=== PATIENT | female | born 1990 | race Caucasian/White ===

== ENCOUNTER → 2016-10-25 | Outpatient (CLI) | payer BC ==
[~2016-10-25] MED LIST: ANT PO; PRENTAB26 PO
[2016-10-25 10:57] LABS: BASO % 0.2 %; BASO ABS # 0.01 K/uL (0-0.2); COMPLETE YES; EOS % 3.1 %; HEMATOCRIT 37.9 % (37-47); IG% 0.2 %; LYMPH % 22.8 %; LYMPH ABS # 1.24 K/uL (1.2-3.4); MEAN CELL VOLUME 89.6 fL (80-100); MEAN CORPUSCULAR HEMOGLOBIN 30.5 pg (25-34); MEAN PLATELET VOLUME 10.1 fL (7.4-10.4); MONO % 6.1 %; NEUT % 67.6 %; PLATELET COUNT 279 K/uL (130-400); RED BLOOD COUNT 4.23 M/uL (4.2-5.4); WHITE BLOOD COUNT 5.44 K/uL (4.8-10.8)
== END | disposition home or self-care (01) ==
LOC: C.LABBC 07:32
PROVIDERS: ATTEND Family Medicine
DX: R10.13 Epigastric pain (principal); R53.82 Chronic fatigue, unspecified

== ENCOUNTER → 2017-08-03 | Outpatient (CLI) | payer BC | END | disposition home or self-care (01) | LOC: C.PAPS 16:22 | PROVIDERS: ATTEND Obstetrics & Gynecology | DX: Z01.419 Encounter for gynecological examination (general) (routine) without abnormal findings (principal); G43.909 Migraine, unspecified, not intractable, without status migrainosus ==

== ENCOUNTER 2019-02-21 00:35 | Inpatient (IN) ==
[2019-02-21] MEDS ORDERED: OXYTOCIN 30 UNITS/500 ML BAG IV PRN ×2 (01:16→07:42)
[2019-02-21] MEDS: LACTATED RINGER'S 1,000 ML IV PRN ×2 (01:30→03:36)
[2019-02-21 01:33] LABS: Hematocrit (blood only) 36.5 % (37-47); Hemoglobin 12.9 g/dL (12.0-16.0); Mean Corpuscular Hemoglobin 32.3 pg (25-34); Mean Corpuscular Volume 91.5 fL (80-100); Mean Platelet Volume 10.3 fL (7.4-10.4); Platelet Count 219 K/uL (130-400); RDW Coefficient of Variation 13.8 % (11.5-14.5); RDW Standard Deviation 46.5 fL (36.4-46.3); Red Blood Count 3.99 M/uL (4.2-5.4); White Blood Count 9.84 K/uL (4.8-10.8)
[2019-02-21] MEDS ORDERED: ePHEDrine sulfate 50 MG/ML AMP ONE (01:33)
[2019-02-21] MEDS ORDERED: BUPIVACAINE 0.25% 30 ML VIAL ONE (01:33)
[2019-02-21] MEDS ORDERED: fentaNYL 2MCG/ML ROPIV 1.25MG/ML 100 ML BAG EPI ONE (01:34)
[2019-02-21] MEDS ORDERED: fentaNYL citrate 100 MCG/2 ML VIAL ONE (01:34)
[2019-02-21 01:37] LABS: Mean Corpuscular Hgb Conc 35.3 g/dL (32-36)
[2019-02-21] MEDS ORDERED: NALOXONE HCL 0.4 MG/1 ML VIAL/CARP IV PRN (01:47)
[2019-02-21] MEDS ORDERED: fentaNYL 2MCG/ML ROPIV 1.25MG/ML 100 ML BAG EPI PRN (01:47)
[2019-02-21] MEDS ORDERED: NALBUPHINE HCL INJ 10 MG/ML AMP IV PRN (01:47)
[2019-02-21] MEDS ORDERED: NALOXONE HCL 1 MG in SODIUM CHLORIDE 0.9% 1000ML 1,000 ML IV PRN (01:47)
[2019-02-21] MEDS ORDERED: ONDANSETRON INJ 2 MG/ML 2 ML VIAL IV PRN (01:47)
[2019-02-21] MEDS ORDERED: DiphenhydrAMINE HCL 50 MG/ML VIAL IV PRN (01:47)
[2019-02-21] MEDS ORDERED: ePHEDrine sulfate 50 MG/ML AMP IV PRN (01:47)
--- NOTE | 2019-02-21 01:50 | Anesthesiology Consultation ---
Date of Service February 21, 2019 Assessment & Plan Chart Review Chart Review: Patient NOT seen in Pre Admission Testing and Acceptable Risk for Labor Epidural Consults Requested none ASA ASA2 Proposed Anesthesia Anesthesia Type: Labor Epidural and CSE Risk / Benefits Reviewed With: PT / POA / Parent / Guardian, Accepts Plan and Informed Consent Obtained History Height/Weight Height: 5 ft 3 in Weight: 92.079 kg Allergies Allergy/AdvReac Type Severity Reaction Status Date / Time Penicillins Allergy Mild RASH Verified 02/20/19 14:34 Dust Allergy Unknown DUST AND Uncoded 12/07/12 07:53 SEASONAL ALLERGIES Medications Home Medications Medication Instructions Recorded Confirmed Last Taken prenat.vits,rosi,[id number] PO 01/30/19 02/20/19 Unknown Active Medications Generic Name Dose Route Start Last Admin Trade Name Freq PRN Reason Stop Dose Admin Lactated Ringer's 1,000 mls @ 125 mls/hr 02/21/19 01:16 02/21/19 01:30 Lr IV 02/23/19 01:15 999 mls/hr .Q8H PRN Administration L&D Protocol Protocol NPO Date Last Intake of Fluids: 02/21/19 Time Last Intake of Fluids: 01:30 Date Last Intake of Solids: 02/20/19 Time Last Intake of Solids: 18:30 Past Medical History Medical History Acid reflux Acne Iron deficiency anemia Migraine headache Anxiety (Resolved) Breast cyst (Resolved) Labial lesion (Resolved) Nausea (Resolved) Weight loss (Resolved) History of varicella Exercise / Class Metabolic Activity II 4-5 Yardwork/Stairs/Walk up hill Past Family History Family History Mother Anemia Other Colorectal cancer Diabetes Dyslipidemia Endometriosis Hypertension Ovarian cancer Past Surgical History Surgical History H/O endoscopy History of rectal surgery S/P wisdom tooth extraction Past Anesthesia History No Hx of Anesthesia Complications and No Family Hx of Anesthesia Complications History of PONV No Hx of PONV and No Hx of Motion Sickness Social History Smoking Status: Never smoker Do You Dip or Chew Tobacco: No Hx Alcohol Use: No Hx Substance Use: No substance use type: does not use Review of Systems no chest pain or sob Physical Exam Vital Signs Last Vital Signs Temp 36.9 C 02/21/19 01:12 Pulse 83 02/21/19 01:48 Resp 18 02/21/19 01:12 BP 135/76 02/21/19 00:56 Pulse Ox 98 02/21/19 01:48 ENMT Mouth: no TMJ abnormality Thyromental Distance: > or= 3.5 Finger Breadths Mallampati Class: II Neck normal visual inspection Respiratory normal respiratory effort Auscultation: lungs clear to auscultation bilaterally Cardiovascular Rate/Rhythm: regular rate and regular rhythm Musculoskeletal Spine: normal cervical ROM Neurologic moves all extremities Psychiatric Orientation: alert and oriented x 3 Testing Laboratory Results 02/21/19 01:22
[2019-02-21] MEDS ORDERED: OXYCODONE/ACETAMINOPHEN 5mg/325mg TAB PO PRN (07:42)
[2019-02-21] MEDS ORDERED: DIPHTHERIA/TETANUS/PERTUSSIS 0.5 ML SYR/VIAL IM ONE (07:42)
[2019-02-21] MEDS ORDERED: HYDROCORTISONE ACETATE 25 MG SUPP PR PRN (07:42)
[2019-02-21] MEDS ORDERED: ACETAMINOPHEN 325 MG TAB PO PRN (07:42)
[2019-02-21] MEDS ORDERED: SUPERCREAM 0.870% 15 GM JAR EXT PRN (07:42)
[2019-02-21] MEDS ORDERED: BENZOCAINE 20% AER SPR 82.5 GM CAN EXT PRN (07:42)
--- NOTE | 2019-02-21 08:36 | Anesthesia Procedure Note ---
Date of Service February 21, 2019 Anesthesia Post Epidural Note Vital Signs Vital Signs: Temp Pulse Resp BP Pulse Ox 37.6 C H 89 18 126/67 100 02/21/19 07:05 02/21/19 08:32 02/21/19 08:17 02/21/19 08:32 02/21/19 07:13 Pain Intensity Bilateral Abdomen: Pain Intensity: 7 Notes Mental Status: alert / awake / arousable and participated in evaluation Patient Amnestic to Procedure: No Nausea / Vomiting: adequately controlled Pain: adequately controlled Airway Patency, RR, SpO2: stable & adequate BP & HR: stable & adequate Hydration State: stable & adequate Neuraxial Anesthesia: was administered and sensory block is resolving Anesthetic Complications: no major complications apparent and Pt Satisfied with anesthetic care Epidural: Removed without complications and With tip intact
[2019-02-21] MEDS: DOCUSATE SODIUM 100 MG CAP PO SCH ×2 (08:57→21:15)
--- NOTE | 2019-02-21 09:16 | Delivery Summary ---
DATE OF OPERATION: 02/21/2019 The patient is a 28-year-old 2, para 1-0-0-1 white female, EDC of 02/25/2019 who presented in active labor. She received effective epidural analgesia. Membranes ruptured spontaneously for clear fluid when she was complete. She began pushing effectively over intact perineum for delivery of a viable male . Rest of the delivered easily and was placed on the mother's abdomen for further attention and drying. The was vigorous and moving all 4 limbs. The cord was clamped and cut after approximately 20 seconds the cord was short. After cord blood was obtained, the placenta was expressed intact with a 3-vessel cord. A first-degree laceration was repaired with 3-0 chromic in the usual fashion. Estimated blood loss was 200 mL. Mother and were doing well after delivery. bleeding was controlled with dilute Pitocin. I attest to the content of the Intraoperative Record and any orders documented therein. Any exceptions are noted below. MTDD
[2019-02-21] MEDS: PRENATAL VITAMIN 1 TAB PO SCH (09:58)
[2019-02-21] MEDS: IBUPROFEN 600 MG TAB PO PRN (21:20)
[2019-02-22] MEDS: IBUPROFEN 600 MG TAB PO PRN ×2 (01:50→06:28)
--- NOTE | 2019-02-22 06:50 | Obstetrical Progress Note ---
Date of Service <Paxton Lancaster DO - Last Filed: 02/22/19 06:50> February 22, 2019 Assessment & Plan <DO Monae New Last Filed: 02/22/19 06:50> (1) : -PPD#1 -Vitals reviewed, WNL (Tmax 37.6) - GBS -, Blood Type A+ - Clinically stable. - Feels well today. Eating well, voiding well, ambulating well. - Pain well controlled. - Routine post- care - Questions answered this morning. Day #:: 1 Subjective <DO Monae Nwe Last Filed: 02/22/19 06:50> Ambulation: ambulating normally Voiding: no voiding problems Passing Gas:: Yes Diet Tolerance:: regular diet Lochia:: Moderate Feeding Type:: breast feeding Current Pain Level(1-10): 0 Patient is a 28 PPD#1. Patient states that she is feeling well today and that her pain is well controlled. She has no other complaints at this time. Constitutional: no fever and no chills Respiratory: no cough, no dyspnea and no wheezing Cardiovascular: + edema; no chest pain, no dyspnea, no palpitations and no calf pain Breast: no breast pain Gastrointestinal: no abdominal pain, no nausea and no vomiting Genitourinary (female): no dysuria and no difficulty urinating Neurologic: no headache(s) Physical Exam <DO Monae New Last Filed: 02/22/19 06:50> Constitutional WD/WN, vitals as above Respiratory normal respiratory effort, lungs clear to auscultation Cardiovascular Rate/Rhythm: regular rate and regular rhythm Heart Sounds: normal S1 and normal S2; no click, no gallop, no murmur and no cardiac rub Extremities: + edema (+1); no calf tenderness Gastrointestinal (Abdomen) Inspection/Auscultation: abdomen normal to inspection and normal bowel sounds Percussion/Palpation: abdomen soft; abdomen nontender Genitourinary OB Exam Abdomen: + fundal height Fundus: + firm and + relation to umbilicus (2cm below); not tender and not boggy Results & Data <DO Monae New Last Filed: 02/22/19 06:50> Vital Signs (Past 12 Hours) Vital Signs Temp Pulse Resp BP Pulse Ox 02/22/19 03:20 36.7 C 72 18 122/77 02/21/19 23:30 36.5 C 71 18 109/71 02/21/19 19:30 36.9 C 84 20 116/75 98 Medications Administered Current Inpatient Medications Acetaminophen (Tylenol) 650 mg PO Q6H PRN PRN Reason: Pain/SHETH/Fever Stop: 03/23/19 07:41 Benzocaine (Dermoplast Pain Relieving [place]) 1 appln EXT PRN PRN PRN Reason: Perineal Discomfort Stop: 03/23/19 07:41 Bisacodyl (Dulcolax) 5 mg PO 1999 [facility] Stop: 02/22/19 20:01 Bisacodyl (Dulcolax) 10 mg [place] DAILY PRN PRN Reason: No BM on 2nd post- day Stop: 03/25/19 06:59 Cocaine HCl (Supercream 0.870%) 1 gm EXT BID PRN PRN Reason: Hemorrhoidal Inflammation Stop: 03/07/19 07:41 Docusate Sodium (Colace) 100 mg PO DAILY@08,21 [facility] Stop: 03/23/19 07:59 Last Admin: 02/21/19 21:15 Dose: 100 mg Documented by: Hydrocortisone (Anusol Hc) 25 mg [place] BID PRN PRN Reason: Hemorrhoidal Inflammation Stop: 03/23/19 07:41 Lactated Ringer's (Lr) 1,000 mls @ 125 mls/hr IV .Q8H PRN; Protocol PRN Reason: L&D Protocol Stop: 02/23/19 01:15 Last Infusion: 02/21/19 07:18 Dose: 537.5 mls/hr Documented by: Oxytocin (Pitocin) 30 units in 500 mls @ 333.333 mls/hr IV .Q1H30M PRN; Protocol PRN Reason: Bleeding Control Stop: 03/23/19 01:15 Last Titration: 02/21/19 12:12 Dose: Infused Documented by: Oxytocin (Pitocin) 30 units in 500 mls @ 333.333 mls/hr IV .Q1H30M PRN; Protocol PRN Reason: Bleeding Control Stop: 03/23/19 07:41 Last Titration: 02/21/19 12:13 Dose: Infused Documented by: Ibuprofen (Motrin) 600 mg PO Q4H PRN PRN Reason: Pain/SHETH/Cramping/Fever Stop: 03/23/19 07:41 Last Admin: 02/22/19 06:28 Dose: 600 mg Documented by: Oxycodone/Acetaminophen (Percocet 5mg/325mg) 1 tab PO Q4H PRN PRN Reason: Pain not relieved by... Stop: 03/07/19 07:41 Prenat Multivit/Cayce/Iron/Folic Ac ( Vitamin) 1 tab PO DAILY@08 GINGER Stop: 03/23/19 07:59 Last Admin: 02/21/19 09:58 Dose: 1 tab Documented by: <Monty Kyle Jr, MD, FACOG - Last Filed: 02/22/19 07:39> Co-Signing Physician Notes Resident Physician Supervision Note: I was present with Dr. Flood during the history and exam. I discussed the case with the resident and agree with the findings and plan as documented in the note. Any exceptions or clarifications are listed here: Patient desires discharge, instructions given, f/u in 6 weeks Documented By: Monty Kyle Jr, MD, FACOG Resident Activity Tracking <Paxton Lancaster DO - Last Filed: 02/22/19 06:50> Resident Involvement: Resident Care Provided Care Provided: OB Delivery
[2019-02-22 07:11] LABS: Hematocrit (blood only) 34.1 % (37-47); Hemoglobin 11.5 g/dL (12.0-16.0); Mean Corpuscular Hemoglobin 31.3 pg (25-34); Mean Corpuscular Hgb Conc 33.7 g/dL (32-36); Mean Corpuscular Volume 92.7 fL (80-100); Mean Platelet Volume 10.1 fL (7.4-10.4); Platelet Count 167 K/uL (130-400); RDW Coefficient of Variation 14.2 % (11.5-14.5); RDW Standard Deviation 48.1 fL (36.4-46.3); Red Blood Count 3.68 M/uL (4.2-5.4); White Blood Count 13.17 K/uL (4.8-10.8)
[2019-02-22] MEDS: PRENATAL VITAMIN 1 TAB PO SCH (08:54)
[2019-02-22] MEDS: DOCUSATE SODIUM 100 MG CAP PO SCH (08:54)
[2019-02-22] MEDS ORDERED: BISACODYL 5 MG TABEC PO SCH (20:00)
[2019-02-23] MEDS ORDERED: BISACODYL 10 MG SUPP PR PRN (07:00)
== END 2019-02-22 17:45 | disposition home or self-care (01) | DRG 807 ==
LOC: OPB 00:35 → 4S1 00:36 → 4N 10:20

== ENCOUNTER 2022-10-12 08:46 | Observation (INO) ==
[2022-10-12] MEDS ORDERED: SODIUM CHLORIDE 0.9% 1000ML 1,000 ML IV STA (08:57)
[2022-10-12] MEDS ORDERED: CEFEPIME 2,000 MG/20 ML VIAL IV STA (08:57)
[2022-10-12] MEDS ORDERED: ONDANSETRON INJ 2 MG/ML 2 ML VIAL IV STA (08:57)
[2022-10-12] MEDS ORDERED: KETOROLAC TROMETHAMINE 15 MG/ML VIAL IV STA (09:04)
[2022-10-12] MEDS ORDERED: MoRPHine SULFATE 2 MG/ML CARP IV PRN ×2 (09:04→16:30)
[2022-10-12] MEDS ORDERED: MoRPHine SULFATE 2 MG/ML CARP IV STA (09:04)
--- NOTE | 2022-10-12 09:08 | Emergency Department Note ---
Impression & Plan RUQ abdominal pain, Acute cholecystitis, Elevated liver enzymes ED Provider Note NAME: TAZ GÓMEZ AGE: 32 SEX: F : 1990 ARRIVES VIA: Walk-In INFORMANT: [Patient] ED PROVIDER(S): [Tomasz Jensen MD] CHIEF COMPLAINT: Abdominal pain HISTORY OF PRESENT ILLNESS: The patient is a 32-year-old female with a history of gallstones. She was here last evening for a bout of abdominal pain and then called back this morning as the radiology overread suggested early acute cholecystitis. The patient states that she began having pain yesterday around noon, 20 hours ago. The pain began after lunch. The pain has been persistent. She has had nausea without vomiting. No fever, no cough or congestion or shortness of breath. No diarrhea or urinary complaints. The patient states that she was seen yesterday and when she left, she began having increased discomfort. She called the ER and they told her that the over read showed potential infection of the gallbladder and she was referred back to the hospital for admission. PMHx/PSHx: See Below SOCIAL HISTORY: See Below. PHYSICAL EXAM: GENERAL: Patient is in no acute distress. HEENT: No acute trauma, normocephalic atraumatic, mucous membranes moist, no nasal congestion. NECK: No stridor, no adenopathy, no meningismus, trachea is midline. LUNGS: Clear to auscultation bilaterally, no wheeze, no rhonchi, breath sounds equal. HEART: Without murmurs gallops or rubs, regular rate and rhythm. ABDOMEN: Soft, moderately tender in the right upper quadrant, no true peritonitis. EXTREMITIES: No cyanosis or edema, full range of motion of all the joints without pain or difficulty, no signs for acute trauma. NEUROLOGIC: Oriented x 3, no acute motor or sensory deficits, no focal weakness. SKIN: No rash, no jaundice, no diaphoresis. DIFFERENTIAL DIAGNOSIS: Acute cholecystitis, biliary colic, pancreatitis, ulcer, gastritis, electrolyte imbalance, UTI, among others. EMERGENCY DEPARTMENT COURSE/PROCEDURES: Prior/Outside records reviewed: Recent ED visit. Radiology readings. MEDICAL DECISION MAKING: There is no leukocytosis or concerning anemia. There is a normal platelet count. No renal failure or significant electrolyte abnormality. AST and ALT are both elevated, this is a new finding compared to her laboratory values earlier. The bilirubin and alk phos were normal. There was no pancreatitis. COVID test returned negative. On exam, the patient was tender in the right upper quadrant. She was not toxic or febrile. Ultrasound from overnight was concerning on over-read for acute cholecystitis. The patient received IV saline, IV Toradol and IV morphine. She was given IV Zofran. She received IV cefepime as empiric antibiotic coverage. I spoke with the patient about her findings, I spoke with case management, I did contact general surgery, Dr. Beltran. The patient was seen in the ED by Dr. Beltran, she is being readied for the operating room. She is going to require a cholecystectomy. DISPOSITION: Patient's presentation and findings warrant a hospital stay and surgical intervention. Past Med/Surg History Medical History Acid reflux Acne Anxiety Breast cyst History of varicella Iron deficiency anemia Labial lesion Migraine headache Nausea Ureterocele of fetus in [place] Weight loss Surgical History H/O endoscopy History of rectal surgery polypectomy S/P wisdom tooth extraction 2013 Family History Mother Anemia Dyslipidemia Endometriosis Grandmother No problems noted. Father Dyslipidemia Diabetes Depression Family/Other Ovarian cancer maternal great grandmother Colorectal cancer maternal relatives Endometriosis Grandmother (Maternal) Hypertension Uncle Hypertension maternal Grandmother (Paternal) Diabetes Grandfather (Maternal) Diabetes Grandfather (Maternal) Diabetes Aunt Bleeding disorder maternal Denies family history of Breast cancer Social History Smoking Status: Never smoker Second Hand Exposure: No; Do You Dip or Chew Tobacco: No; Hx Alcohol Use: No Hx Substance Use: No Preferred Language: Faroese Communication Ability: Effective Bond Writer Required: No Beliefs That Will Affect Care: None marital status: Current Living Situation: Spouse Other Information That Helps Us Care for You: No Feels Safe at Home: Yes Safety Concerns: Feels Safe At This Time Assistive Devices: Glasses Allergies Allergies Allergy/AdvReac Type Severity Reaction Status Date / Time Penicillins Allergy Intermediate RASH Verified 10/11/22 23:59 Home Meds Home Medications Medication Instructions Recorded Confirmed biotin 10 mg tablet 10 mg PO DAILY 10/11/22 10/12/22 multivitamin 2 tab PO DAILY 10/11/22 10/12/22 vit no.95-ferrous 1 tab PO DAILY 10/11/22 10/12/22 fumarate 28 mg-folic acid 800 mcg tablet () Results & Data (ED) Vital Signs Vital Signs - 24 hr 10/12/22 08:47 10/12/22 10:00 10/12/22 12:12 Temperature 36.6 C Temperature Source Temporal Artery Scan Pulse Rate 77 Pulse Rate [Apical] Pulse Rate [Left Finger] 69 63 Pulse Rhythm [Apical] Pulse Rhythm [Left Finger] Regular Pulse Strength [Left Finger] Normal Respiratory Rate 16 20 18 Respiratory Effort / Characteristics Non-Labored Spontaneous Respiratory Depth Normal Respiratory Pattern Regular Blood Pressure 125/78 Blood Pressure [Left Arm] Blood Pressure [Right Arm] 97/70 L 97/50 L Blood Pressure Mean 93 Blood Pressure Mean [Left Arm] Blood Pressure Mean [Right Arm] 79 65 Blood Pressure Position [Left Arm] Blood Pressure Position [Right Arm] Sitting Pulse Oximetry 99 100 99 Oxygen Delivery Method Room Air Room Air Oxygen Flow Rate Sepsis Recent Fever Within 48 Hours No Sepsis New/Unexplained Change in Mental Status N/A Sepsis Action Taken by Nursing No Action Required 10/12/22 12:53 10/12/22 14:27 Temperature 36.9 C 36.8 C Temperature Source Oral Temporal Artery Scan Pulse Rate Pulse Rate [Apical] 67 Pulse Rate [Left Finger] 67 Pulse Rhythm [Apical] Regular Pulse Rhythm [Left Finger] Regular Pulse Strength [Left Finger] Normal Respiratory Rate 18 18 Respiratory Effort / Characteristics Non-Labored Spontaneous Non-Labored Spontaneous Respiratory Depth Normal Normal Respiratory Pattern Regular Regular Blood Pressure Blood Pressure [Left Arm] 101/50 L Blood Pressure [Right Arm] 115/65 Blood Pressure Mean Blood Pressure Mean [Left Arm] 67 Blood Pressure Mean [Right Arm] 81 Blood Pressure Position [Left Arm] Semi-fowlers Blood Pressure Position [Right Arm] Sitting Pulse Oximetry 98 100 Oxygen Delivery Method Room Air Oxymask Oxygen Flow Rate 6 Sepsis Recent Fever Within 48 Hours Sepsis New/Unexplained Change in Mental Status Sepsis Action Taken by Residential Medications Current Medication List: was personally reviewed by me Laboratory Data Attestation: I reviewed the patient's lab results. 10/12/22 09:15 10/12/22 09:15 Lab Results 10/12/22 10/12/22 10/12/22 Range/Units 09:15 09:15 09:30 WBC 8.22 (4.8-10.8) K/ul RBC 4.25 (4.20-5.40) M/uL Hgb 12.8 (12.0-16.0) g/dl Hct 36.6 L (37.0-47.0) % MCV 86.1 (80.0-100.0) fL MCH 30.1 (25.0-34.0) pg MCHC 35.0 (32.0-36.0) g/dL RDW Std Deviation 39.4 (36.4-46.3) fL RDW Coeff of Sadiq 12.6 (11.5-14.5) % Plt Count 240 (130-400) K/uL MPV 10.1 (9.4-12.4) fL Immature Gran % (Auto) 0.2 % Neut % (Auto) 85.5 % Lymph % (Auto) 9.1 % [place] % (Auto) 4.7 % Eos % (Auto) 0.1 % Baso % (Auto) 0.4 % Neut # (Auto) 7.02 H (1.40-6.50) K/uL Lymph # (Auto) 0.75 L (1.2-3.4) K/uL [place] # (Auto) 0.39 (0.11-0.59) K/uL Eos # (Auto) 0.01 (0-0.50) K/uL Baso # (Auto) 0.03 (0-0.2) K/uL Immature Gran # (Auto) 0.02 (0.01-0.20) K/uL Sodium 139 (136-145) mmol/L Potassium 3.9 (3.5-5.1) mmol/L Chloride 109 H (98-107) mmol/L Carbon Dioxide 23 (21-32) mmol/L Anion Gap 7 (3-11) BUN 9 (6-23) mg/dl Creatinine 0.65 (0.6-1.2) mg/dl Est Cr Clr Drug Dosing 123.2 ml/min Est GFR ( Amer) 135.2 ml/min Est GFR (Non-Af Amer) 116.7 ml/min BUN/Creatinine Ratio 13.8 (10-20) Glucose 107 H (70-99(Fasting)) mg/dl Calcium 9.1 (8.6-10.3) mg/dl Total Bilirubin 1.0 D (0.2-1.0) mg/dl AST 548 H (13-39) U/L ALT 412 H (7-52) U/L Alkaline Phosphatase 62 (34-104) U/L Total Protein 7.4 (6.0-8.3) gm/dl Albumin 4.6 (3.4-5.0) gm/dl Globulin 2.8 (2.5-4.0) gm/dl Albumin/Globulin Ratio 1.6 (0.9-2) Lipase 30 (11-82) U/L SARS-CoV-2, RNA, NAAT NEGATIVE (NEGATIVE) Administered Medications Discontinued Medications Bupivacaine HCl/Epinephrine Bitart (Bupivacaine/Epinephrine 0.25% 1:200,000 30 Ml Vial) Confirm Administered Dose 30 ml .ROUTE .[facility] Stop: 10/12/22 12:37 Last Admin: 10/12/22 14:11 Dose: 30 ml Documented By: GEN Sodium Chloride (Nss 1000ml) 1,000 mls @ 999 mls/hr IV .Q1H1M STA Stop: 10/12/22 09:57 Last Infusion: 10/12/22 16:20 Dose: 0 mls/hr Documented By: Admin: 10/12/22 09:29 Dose: 999 mls/hr Documented By: QAMAR Cefepime HCl (Maxipime) 2,000 mg in 20 mls @ 5 mls/min IV NOW STA; Protocol Stop: 10/12/22 09:00 Last Admin: 10/12/22 09:29 Dose: 5 mls/min Documented By: QAMAR Ketorolac Tromethamine (Ketorolac Tromethamine 15 Mg/Ml Vial) 15 mg IV NOW STA Stop: 10/12/22 09:05 Last Admin: 10/12/22 09:29 Dose: 15 mg Documented By: QAMAR Morphine Sulfate (Morphine Sulfate 2 Mg/Ml [place]) 2 mg IV NOW STA Stop: 10/12/22 09:05 Last Admin: 10/12/22 09:29 Dose: 2 mg Documented By: QAMAR Ondansetron HCl (Ondansetron Inj 2 Mg/Ml 2 Ml Vial) 4 mg IV NOW STA Stop: 10/12/22 08:58 Last Admin: 10/12/22 09:29 Dose: 4 mg Documented By: MNE Discharge Plan Visit Data Chief Complaint: Abdominal Pain Stated Complaint: INFECTION IN GALLBLATER ED Provider: Tomasz Jensen Discharge Problem: RUQ abdominal pain, Acute cholecystitis, Elevated liver enzymes Patient Disposition: Admitted As Inpatient Condition: Good Discharge Instructions Interventions: ED Discharge Assessment Last Done: 10/12/22 12:38
[2022-10-12 09:41] LABS: Basophils # (auto) 0.03 K/uL (0-0.2); Basophils % (auto) 0.4 %; Eosinophils # (auto) 0.01 K/uL (0-0.50); Eosinophils % (auto) 0.1 %; Hematocrit (blood only) 36.6 % (37.0-47.0); Hemoglobin 12.8 g/dl (12.0-16.0); Immature Granulocytes # (auto) 0.02 K/uL (0.01-0.20); Immature Granulocytes % (auto) 0.2 %; Lymphocytes # (auto) 0.75 K/uL (1.2-3.4); Lymphocytes % (auto) 9.1 %; Mean Corpuscular Hemoglobin 30.1 pg (25.0-34.0); Mean Corpuscular Volume 86.1 fL (80.0-100.0); Mean Platelet Volume 10.1 fL (9.4-12.4); Monocytes # (auto) 0.39 K/uL (0.11-0.59); Monocytes % (auto) 4.7 %; Neutrophils # (auto) 7.02 K/uL (1.40-6.50); Neutrophils % (auto) 85.5 %; Platelet Count 240 K/uL (130-400); RDW Coefficient of Variation 12.6 % (11.5-14.5); RDW Standard Deviation 39.4 fL (36.4-46.3); Red Blood Count 4.25 M/uL (4.20-5.40); White Blood Count 8.22 K/ul (4.8-10.8)
[2022-10-12 10:04] LABS: Albumin Globulin Ratio 1.6 (0.9-2); Albumin Level 4.6 gm/dl (3.4-5.0); BUN Creatinine Ratio 13.8 (10-20); Calcium 9.1 mg/dl (8.6-10.3); Creatinine Clr Calc Pharmacy 123.2 ml/min; Est GFR (African American) 135.2 ml/min; Est GFR (Non-African American) 116.7 ml/min; Globulin 2.8 gm/dl (2.5-4.0); Potassium 3.9 mmol/L (3.5-5.1); Total Protein 7.4 gm/dl (6.0-8.3)
--- NOTE | 2022-10-12 10:37 | History & Physical Report ---
Date of Service October 12, 2022 Assessment & Plan (1) Acute cholecystitis: Plan 32-year-old woman with acute cholecystitis. I discussed the risks and benefits of laparoscopic cholecystectomy with her and her . All her questions were answered, and they are agreeable to proceed. Consent has been obtained. We will take her to the operating room at the earliest convenience. History of Present Illness Primary Care Provider: Paxton Lancaster DO 32-year-old woman presents with a 1 day history of right upper quadrant pain with nausea. She has had prior episodes of right upper quadrant pain, and an ultrasound in the past demonstrated gallstones. The pain resolved however, and she was not seen by surgery at that time. Since the pain started yesterday, it has been worsening. It is sharp pain in her right upper quadrant and epigastric region. She denies fevers or chills. Ultrasound demonstrates acute cholecystitis. White blood cell count is normal. AST/ALT slightly elevated but total bilirubin and alk phosphatase are normal. Allergies Allergy/AdvReac Type Severity Reaction Status Date / Time Penicillins Allergy Intermediate RASH Verified 10/11/22 23:59 Home Medications Medication Instructions Recorded Confirmed Type biotin 10 mg tablet 10 mg PO DAILY 10/11/22 10/12/22 History multivitamin 2 tab PO DAILY 10/11/22 10/12/22 History vit no.95-ferrous 1 tab PO DAILY 10/11/22 10/12/22 History fumarate 28 mg-folic acid 800 mcg tablet () Past Med/Surg History Medical History Acid reflux Acne Anxiety Breast cyst History of varicella Iron deficiency anemia Labial lesion Migraine headache Nausea Ureterocele of fetus in [place] Weight loss Surgical History H/O endoscopy History of rectal surgery polypectomy S/P wisdom tooth extraction 2013 Family History Mother Anemia Dyslipidemia Endometriosis Grandmother No problems noted. 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 Required: No Beliefs That Will Affect Care: None marital status: Current Living Situation: Spouse and Family Feels Safe at Home: Yes Assistive Devices: None Review of Systems Review of Systems: All systems reviewed & are unremarkable except as noted in HPI & below Physical Exam Constitutional: WD/WN, vitals as above Eyes: PERRL, conjunctivae normal, anicteric sclerae Neck: trachea midline, no thyromegaly Respiratory: normal respiratory effort; no respiratory distress and no labored breathing Cardiovascular: Rate/Rhythm: regular rate and regular rhythm Gastrointestinal (Abdomen): Inspection/Auscultation: abdomen normal to inspection; abdomen not distended Percussion/Palpation: + abdomen tender (RUQ and epigastric region) and abdomen soft; no guarding and abdomen not rigid Skin: no rashes, warm and dry Psychiatric: A+Ox3, euthymic affect Results & Data Results & Data Vital Signs (Past 12 Hours) Vital Signs Temp Pulse Pulse Resp BP BP Pulse Ox 10/12/22 10:00 69 20 97/70 L 100 10/12/22 08:47 36.6 C 77 16 125/78 99 O2 Del Method 10/12/22 10:00 Room Air 10/12/22 08:47 Laboratory Results 10/12/22 10/12/22 10/12/22 Range/Units 09:30 09:15 09:15 WBC 8.22 (4.8-10.8) K/ul RBC 4.25 (4.20-5.40) M/uL Hgb 12.8 (12.0-16.0) g/dl Hct 36.6 L (37.0-47.0) % MCV 86.1 (80.0-100.0) fL MCH 30.1 (25.0-34.0) pg MCHC 35.0 (32.0-36.0) g/dL RDW Std Deviation 39.4 (36.4-46.3) fL RDW Coeff of Sadiq 12.6 (11.5-14.5) % Plt Count 240 (130-400) K/uL MPV 10.1 (9.4-12.4) fL Immature Gran % (Auto) 0.2 % Neut % (Auto) 85.5 % Lymph % (Auto) 9.1 % [place] % (Auto) 4.7 % Eos % (Auto) 0.1 % Baso % (Auto) 0.4 % Neut # (Auto) 7.02 H (1.40-6.50) K/uL Lymph # (Auto) 0.75 L (1.2-3.4) K/uL [place] # (Auto) 0.39 (0.11-0.59) K/uL Eos # (Auto) 0.01 (0-0.50) K/uL Baso # (Auto) 0.03 (0-0.2) K/uL Immature Gran # (Auto) 0.02 (0.01-0.20) K/uL Sodium 139 (136-145) mmol/L Potassium 3.9 (3.5-5.1) mmol/L Chloride 109 H (98-107) mmol/L Carbon Dioxide 23 (21-32) mmol/L Anion Gap 7 (3-11) BUN 9 (6-23) mg/dl Creatinine 0.65 (0.6-1.2) mg/dl Est Cr Clr Drug Dosing 123.2 ml/min Est GFR ( Amer) 135.2 ml/min Est GFR (Non-Af Amer) 116.7 ml/min BUN/Creatinine Ratio 13.8 (10-20) Glucose 107 H (70-99(Fasting)) mg/dl Calcium 9.1 (8.6-10.3) mg/dl Total Bilirubin 1.0 D (0.2-1.0) mg/dl AST 548 H (13-39) U/L ALT 412 H (7-52) U/L Alkaline Phosphatase 62 (34-104) U/L Total Protein 7.4 (6.0-8.3) gm/dl Albumin 4.6 (3.4-5.0) gm/dl Globulin 2.8 (2.5-4.0) gm/dl Albumin/Globulin Ratio 1.6 (0.9-2) Lipase 30 (11-82) U/L SARS-CoV-2, RNA, NAAT NEGATIVE (NEGATIVE) Diagnostic Findings ADDENDUM ADDENDUM: The examination is reviewed in concurrence with the abdominal rad iograph performed the same date. The gallbladder is significantly distended, with stones in the region of the gallbladder neck. The wall is mildly thickened and minimally edematous. Acute cholecystitis is not excluded. Surgical assessment is advised. If warranted, a nuclear hepatobiliary scan could be considered for further assessment. No intra or extrahepatic biliary ductal dilatation is seen. Findings were reviewed with Jose Godinez in the emergency Department at the time of addendum. Electronically signed by: Tomasz Bravo M.D. 10/12/2022 7:12 AM ADDENDUM END Exam(s): US GALLBLADDER EXAM: US Abdomen Limited, Gallbladder CLINICAL HISTORY: RUQ abd pain. TECHNIQUE: Real-time ultrasound of the right upper quadrant with image documentation. COMPARISON: Limited abdominal ultrasound 02/22/2022 FINDINGS: Liver: The liver is hyperechoic in appearance measuring 14.4 cm. Gallbladder: Gallstones are noted in the dependent posterior gallbladder. Shadowing gallstones are noted near the neck of the gallbladder, measuring up to 1 cm in diameter. The gallbladder is somewhat hydropic in appearance. The gallbladder wall measures 1.4 mm. No pericholecystic fluid. Evaluation for a sonographic Clayton sign is limited by patient medication status. Common bile duct: The common bile duct measures 3.9 mm. No stones. No dilation. Pancreas: The visualized pancreas is unremarkable. Right kidney: Right kidney demonstrates no hydronephrosis or nephrolithiasis. Inferior vena cava: The IVC is unremarkable. Free fluid: No free fluid. IMPRESSION: 1. Gallstones are noted in the dependent posterior gallbladder with shadowing stones noted near the neck of the gallbladder, measuring up to 1 cm in diameter. The gallbladder is somewhat hydropic in appearance. However, there is no gallbladder wall thickening or pericholecystic fluid to suggest associated cholecystitis. Evaluation for potential sonographic Clayton sign is limited by patient medication status. Please correlate clinically. 2. No biliary dilatation.
[2022-10-12] MEDS ORDERED: fentaNYL citrate PF 100 MCG/2 ML VIAL ONE ×2 (12:33→12:34)
[2022-10-12] MEDS ORDERED: MIDAZOLAM HCL 1 MG/ML 2ML VIAL ONE (12:33)
[2022-10-12] MEDS ORDERED: BUPIVACAINE/EPINEPHRINE 0.25% 1:200,000 30 ML VIAL ONE (12:36)
--- NOTE | 2022-10-12 12:38 | Anesthesiology Consultation ---
Date of Service October 12, 2022 Assessment & Plan (1) Encounter for pre-operative examination: Chart Review Chart Review: Acceptable Risk for Surgery History Surgery Operation Date: 10/12/22 12:30 Proposed Procedures p Laparoscopic Cholecystectomy - Rigoberto Beltran MD Height/Weight Height: 5 ft 5 in Weight: 73 kg Allergies Allergy/AdvReac Type Severity Reaction Status Date / Time Penicillins Allergy Intermediate RASH Verified 10/11/22 23:59 Medications Home Medications Medication Instructions Recorded Confirmed Last Taken biotin 10 mg tablet 10 mg PO DAILY 10/11/22 10/12/22 10/11/22 multivitamin 2 tab PO DAILY 10/11/22 10/12/22 10/11/22 vit no.95-ferrous 1 tab PO DAILY 10/11/22 10/12/22 10/11/22 fumarate 28 mg-folic acid 800 mcg tablet () Past Medical History Medical History Acid reflux Acne Anxiety Breast cyst History of varicella Iron deficiency anemia Labial lesion Migraine headache Nausea Ureterocele of fetus in [place] Weight loss Past Family History Family History Mother Anemia Dyslipidemia Endometriosis Grandmother No problems noted. Father Dyslipidemia Diabetes Depression Family/Other Ovarian cancer maternal great grandmother Colorectal cancer maternal relatives Endometriosis Grandmother (Maternal) Hypertension Uncle Hypertension maternal Grandmother (Paternal) Diabetes Grandfather (Maternal) Diabetes Grandfather (Maternal) Diabetes Aunt Bleeding disorder maternal Denies family history of Breast cancer Past Surgical History Surgical History H/O endoscopy History of rectal surgery polypectomy S/P wisdom tooth extraction 2013 Social History Smoking Status: Never smoker Hx Alcohol Use: No Hx Substance Use: No substance use type: does not use Physical Exam Vital Signs Last Vital Signs Temp 36.6 C 10/12/22 08:47 Pulse 63 10/12/22 12:12 Resp 18 10/12/22 12:12 BP 97/50 L 10/12/22 12:12 Pulse Ox 99 10/12/22 12:12 O2 Del Method Room Air 10/12/22 12:12 Testing Laboratory Results 10/12/22 09:15 10/12/22 09:15
[2022-10-12] MEDS ORDERED: fentaNYL citrate PF 100 MCG/2 ML VIAL IV PRN (13:12)
[2022-10-12] MEDS ORDERED: PROMETHAZINE HCL 6.25 MG in SODIUM CHLORIDE 0.9% 50 ML IV PRN (13:12)
[2022-10-12] MEDS ORDERED: ATROPINE SULFATE 0.1 MG/ML 10ML SYR IV PRN (13:12)
[2022-10-12] MEDS ORDERED: KETOROLAC 30 MG/ML VIAL IV PRN ×2 (13:12→16:30)
[2022-10-12] MEDS ORDERED: ACETAMINOPHEN 1000 MG/100 ML IV IV ONE (13:51)
[2022-10-12] MEDS ORDERED: ONDANSETRON INJ 2 MG/ML 2 ML VIAL ONE (13:53)
[2022-10-12] MEDS ORDERED: DEXAMETHASONE SOD INJ 4 MG/ML VIAL ONE (13:53)
[2022-10-12] MEDS ORDERED: PROPOFOL IV EMULSION 10 MG/ML 20 ML VIAL IV ONE (13:53)
[2022-10-12] MEDS ORDERED: LIDOCAINE 2% MPF LOCAL 5 ML VIAL ONE (13:53)
[2022-10-12] MEDS ORDERED: ePHEDrine sulfate 50 MG/ML AMP ONE (13:53)
[2022-10-12] MEDS ORDERED: ROCURONIUM BROMIDE 10 MG/ML 5 ML VIAL IV ONE (13:53)
--- NOTE | 2022-10-12 14:25 | Operative Report ---
Post Operative Report Pre & Post Diagnosis Operation Date: 10/12/22 12:30 Pre-Op Diagnosis: Acute Cholecystitis Post-Op Diagnosis: Acute Cholecystitis I identified the patient and participated in the time-out.: Yes Procedure Operation Date: 10/12/22 12:30 Actual Procedures p Laparoscopic Cholecystectomy(Not Applicable) - Rigoberto Beltran MD Surgeon Rigoberto Beltran MD Mathematics Professor none Estimated Blood Loss 5 Findings Consistent with Post-Op Diagnosis Acute cholecystitis with hydrops of the gallbladder Specimens Gallbladder Drains None Anesthesia Type General Complications No immediate complications Description of Procedure The patient was taken to the operating room, and placed supine on the operating table. A timeout was performed, perioperative antibiotics were administered, SCD boots were placed. After adequate anesthesia and analgesia was obtained, the abdomen was prepped and draped in the normal sterile fashion. Local anesthetic was injected into and around the proposed incision sites. An incision was made with a 15 blade scalpel in the supraumbilical region and carried down to the level of the fascia. The fascia was grasped with a trach hook, and a varies needle was used to enter the abdominal cavity. The abdomen was insufflated to a pressure of 15 mmHg, and a 11 mm trocar was placed in this location. A 10 mm, 30 degree laparoscope was placed into the abdominal cavity, and the abdomen was surveyed. Two 5 mm trochars were placed along the right costal margin, and one 5 mm trocar was placed in the subxiphoid region under direct visualization. The gallbladder was grasped and retracted cephalad and laterally, exposing the triangle of Calot. Dissection began in the triangle with a combination of blunt dissection with the [place] dissector, and judicious use of the hook cautery. The cystic duct and cystic artery were dissected free circumferentially, and a critical view of safety was obtained. The cystic duct and cystic artery were clipped and transected, and the gallbladder was removed from the gallbladder fossa with the hook cautery. The camera was switched to a 5 mm, the gallbladder was placed in an Endo Catch bag, and removed via the supraumbilical port site. The camera was switched back to the 10 mm camera, and the abdomen was surveyed again. Hemostasis was checked and attended, and was excellent. The abdomen was copiously irrigated and suctioned free. Again hemostasis was checked and was excellent. All trochars were removed under direct visualization. The abdomen was desufflated. The fascia in the 11 mm port site was closed with a 0 Vicryl suture. The skin was closed with a running 4-0 Monocryl subcuticular stitch. Dermabond was applied. The patient tolerated the procedure without complication, and was transferred in stable condition to the PACU. All instrument, needle, and sponge counts were correct at the end of the case. I attest to the content of the Intraoperative Record and any orders documented therein. Any exceptions are noted below.
--- NOTE | 2022-10-12 15:11 | Anesthesiology Progress Note ---
Date of Service October 12, 2022 Anesthesia Post Procedure Vital Signs Vital Signs: Temp Pulse Pulse Pulse Resp BP BP 10/12/22 15:05 98.2 F 95 H 18 102/57 L 10/12/22 14:55 98.2 F 73 11 L 101/57 L 10/12/22 14:45 98.2 F 75 12 95/52 L 10/12/22 14:35 98.2 F 70 13 90/55 L 10/12/22 14:27 98.2 F 67 18 101/50 L 10/12/22 12:53 98.4 F 67 18 10/12/22 12:12 63 18 10/12/22 10:00 69 20 10/12/22 08:47 97.9 F 77 16 125/78 BP Pulse Ox O2 Del Method O2 Flow Rate 10/12/22 15:05 100 Room Air 10/12/22 14:55 100 Room Air 10/12/22 14:45 99 Room Air 10/12/22 14:35 100 Oxymask 6 10/12/22 14:27 100 Oxymask 6 10/12/22 12:53 115/65 98 Room Air 10/12/22 12:12 97/50 L 99 Room Air 10/12/22 10:00 97/70 L 100 Room Air 10/12/22 08:47 99 Transfer of Care Handoff Completed per policy Notes Mental Status: alert / awake / arousable and participated in evaluation Patient Amnestic to Procedure: Yes Nausea / Vomiting: adequately controlled Pain: adequately controlled Airway Patency, RR, SpO2: stable & adequate BP & HR: stable & adequate Hydration State: stable & adequate Anesthetic Complications: no major complications apparent and Pt Satisfied with anesthetic care
[2022-10-12] MEDS ORDERED: diphenhydrAMINE Capsule 25 MG CAP PO PRN (16:30)
[2022-10-12] MEDS ORDERED: PROMETHAZINE HCL 12.5 MG in SODIUM CHLORIDE 0.9% 50 ML IV PRN (16:30)
[2022-10-12] MEDS ORDERED: ONDANSETRON INJ 2 MG/ML 2 ML VIAL IV PRN (16:30)
[2022-10-12] MEDS ORDERED: oxyCODONE/ACETAMINOPHEN 5mg/325mg TAB PO PRN (16:30)
[2022-10-13] MEDS ORDERED: ENOXAPARIN INJ 40 MG/0.4 ML SYR SQ SCH (08:00)
[2022-10-13] MEDS ORDERED: ACETAMINOPHEN 325 MG TAB PO PRN (08:52)
--- NOTE | 2022-10-13 17:12 | Discharge Summary ---
Date of Service October 13, 2022 Admission HPI Per Admitting Provider 32-year-old woman presents with a 1 day history of right upper quadrant pain with nausea. She has had prior episodes of right upper quadrant pain, and an ultrasound in the past demonstrated gallstones. The pain resolved however, and she was not seen by surgery at that time. Since the pain started yesterday, it has been worsening. It is sharp pain in her right upper quadrant and epigastric region. She denies fevers or chills. Ultrasound demonstrates acute cholecystitis. White blood cell count is normal. AST/ALT slightly elevated but total bilirubin and alk phosphatase are normal. Principal Diagnosis Acute cholecystitis Discharge Exam Constitutional WD/WN, vitals as above cooperative and comfortable; no acute distress and not ill appearing Respiratory normal respiratory effort; no respiratory distress Gastrointestinal (Abdomen) Inspection/Auscultation: abdomen normal to inspection and + abdominal surgical incision (clean/dry/intact with dermabond ); abdomen not distended Percussion/Palpation: + abdomen tender (at incision sites appropriate postop) and abdomen soft; no guarding and abdomen not rigid Skin no rashes, warm and dry no jaundice Psychiatric A+Ox3, euthymic affect Discharge Data Allergies Allergy/AdvReac Type Severity Reaction Status Date / Time Penicillins Allergy Intermediate RASH Verified 10/11/22 23:59 Consultations 10/12/22 09:27 Consult General Surgery Stat Procedures Performed Operation Date: 10/12/22 12:30 Actual Procedures p Laparoscopic Cholecystectomy(Not Applicable) - Rigoberto Beltran MD Hospital Course (1) Acute cholecystitis: Plan Patient taken to operating room for laparoscopic cholecystectomy on 10/13/[address] Beltran. Patient found to have acute cholecystitis with hydrops. Patient tolerated procedure without difficulty and transferred to recovery and then to medical/surgical floor for postoperative care. Diet advanced as tolerated. Activity as tolerated. Pain management and antiemetics as needed. POD # 1 avss, was hypotensive but asymptomatic. BP usually runs low 100/60's at home. Patient was discharged home on POD # 1 in stable condition. Total Time Total Time Spent Total Time Spent (In Minutes): 30 Total Time Includes: Examination of the Patient, Discharge Planning and Medication Reconciliation Discharge Plan Discharge Items Patient Disposition: Home - Self-Care Reason For Visit: ACUTE CHOLECYSTITIS Discharge Diagnosis: Acute cholecysitits Condition on Discharge: Good Activity: Per Instructions section Non-emergency contact: Primary Care Provider and Surgeon Call non-emergency contact if: you have any medication questions, your pain is not controlled, your pain is worsening, you have a fever, your temperature is above 101, your wound has increased redness, your wound has increased drainage and your wound pain has increased Follow-up/Referrals: Mayra Crawley PA-C [Physician Parole Agent] - 10/20/22 8:00 am [place] [place] Paxton Lancaster DO [Primary Care Provider] - Diet: Regular Addtl Attending Provider Instructions: Post-Surgical ~Discharge Instructions Activity Recommendations: - lifting limitation: (20 pounds for 2-3 weeks), - exercise/sex/sports limit: (nonstrenuous for 2 weeks), - driving or machine use limit: (none for 1 week or until pain free and no longer taking narcotic pain medication), - Shower/bathe limit: (may shower, no submerging underwater for 10-14 days) Diet: - Resume previous diet. Be cautious of fatty/greasy foods as these may cause diarrhea SPECIAL CARE INSTRUCTIONS: - May shower. Let water run over area and pat dry. - Surgical glue will fall off on its own, do not pick at it. - Call the surgeon's office with any questions or concerns - - (ex. temperature higher than 101 degrees F, excessive bleeding or pain). MEDICATIONS: - Resume previous medications unless instructed otherwise by your surgeon. - May alternate extra strength Tylenol and Ibuprofen as needed for mild to moderate pain -650 mg Tylenol every 6 hours as needed - Ibuprofen 600 mg every 6 hours as needed (take with food) - Percocet 1 every 6 hours, as needed for moderate to severe pain - Recommend daily stool softener (Colace) while taking narcotic pain medication to prevent constipation or straining. FOLLOW UP VISIT: - If not already scheduled, please call the office to schedule a two week follow-up appointment. Office number Pending Studies at Discharge: Yes (gallbladder pathology) Stand-Alone Forms: My [employer], Smoking Cessation Medications and DC Order Prescriptions: New oxycodone-acetaminophen 5-325 mg tablet 1 tab PO Q6H PRN (Reason: pain) Qty: 5 0RF Continued multivitamin Tablet 2 tab PO DAILY biotin 10 mg Tablet 10 mg PO DAILY PNV cmb#95-ferrous fumarate-FA [] 28 mg iron- 800 mcg Tablet 1 tab PO DAILY Discharge Orders: Discharge Order (Routine); Ordered 10/13/22 Ordered By: Mayra Ingram/Other Patient Handouts: Cholecystectomy Admission Data Admit Date/Time: 10/12/22 14:28 Attending Provider: Rigoberto Beltran Admit Provider: Rigoberto Beltran Primary Care Provider: Paxton Lancaster Other Providers: Rigoberto Beltran Other Interventions: Discharge Summary Assessment (RN) Last Done: 10/13/22 15:49
== END 2022-10-13 17:22 | disposition home or self-care (01) ==
LOC: ED 08:46 → 3W 12:49 → OR 12:49 → 3W 12:50